=== PATIENT | female | born 1970 | race Caucasian/White ===

== ENCOUNTER 2020-10-30 10:00 | Day surgery (SDC) | payer BC ==
[~2020-10-30] VITALS: Ht 162.6 cm; Wt 58.6 kg
--- NOTE | 2020-10-30 10:49 | NUR ---
dr dacosta in to give family prescription.
--- NOTE | 2020-10-30 14:35 | NUR ---
10/30/20 1435 Brianna Bailey 1431 PATIENT ARRIVES TO PACU UNRESPONSIVE TO PAIN. RN HOLDING JAW THRUST TO MAINTAIN AIRWAY. RESP EVEN AND UNLABORED, MASK AT 6 LITERS.
[2020-10-30] MEDS ORDERED: PERCOCET 5-3251 EACH PO (15:40)
[2020-10-30] MEDS ORDERED: IBUPROFEN800 MG PO (15:40)
[2020-10-30] MEDS ORDERED: IRON325 M1 PO (15:41)
--- NOTE | 2020-10-30 16:48 | NUR ---
READY FOR URINARY CATHETER TO BE DCD.
--- NOTE | 2020-10-30 17:14 | NUR ---
assisted up to br. amb well. voids 100mls bright yellow urine.
--- NOTE | 2020-11-03 09:01 | OR ---
[facility] [address] [place], [place] [address] Signed DATE OF OPERATION: 10/30/2020 SURGEON: Enoch Pandya MD Patient of Dr. Pandya. PREOPERATIVE DIAGNOSES: Submucosal fibroid, abnormal uterine bleeding and acute and chronic blood-loss anemia. POSTOPERATIVE DIAGNOSES: Submucosal fibroid, abnormal uterine bleeding and acute and chronic blood-loss anemia. PROCEDURE: Total laparoscopic hysterectomy with bilateral salpingectomy and cystoscopy. DIRECTOR PART: Dr. Aponte. ANESTHESIA: General. ESTIMATED BLOOD LOSS: 20 mL. COMPLICATIONS: None. DRAINS: Valera to bladder. FINDINGS: Normal-sized cervix. The uterus slightly symmetrically enlarged with 5 cm submucous fibroid within the upper portion of the uterine cavity. The rest of the uterus appeared normal. The anterior cul-de-sac was free of any adhesions. The posterior cul-de-sac was free of any adhesions. The left tube was normal in length and normal-appearing fimbriated end and no adhesions. The left ovary is normal size and shape without any evidence of endometriosis or adhesions. The right tube was normal in length with normal-appearing fimbriated end and no adhesions. Right ovary is normal size and shape without any evidence of endometriosis or adhesions. The rest of pelvis is free of any masses or adhesions. Electronically Signed By: ENOCH PANDYA MD 11/03/20 0901 PATIENT NAME: MILENA MATTA OPERATIVE REPORT DATE OF : 66 REPORT #: [id number] PHYSICIAN: ENOCH PANDYA MD PCP: TRICIA TEE REPORT IS CONFIDENTIAL AND NOT TO BE RELEASED WITHOUT AUTHORIZATION [facility] [address], [place] [address] Signed DESCRIPTION OF PROCEDURE: The patient was brought to the operating room, placed in supine position. After adequate general anesthesia was obtained, she was placed in a dorsal lithotomy position, prepped and draped in usual sterile fashion. Valera catheter was placed in the bladder. A weighted speculum was placed in the vagina and the anterior lip of the cervix was grasped with an Allis clamp. The cervix was serially dilated and then VCare uterine manipulator was gently inserted into the fundus of the uterus and the balloon filled with water. Allis clamp was removed and the cervical cap slid up the manipulator and around the cervix. The vaginal cup was slid up and pressed against the cervical cap and tightened in place to hold the cervical cap around the cervix. A weighted speculum was removed. Attention was then drawn to the abdomen. A small infraumbilical skin incision was made with a scalpel after injecting the area with 0.25% Marcaine with epinephrine. The subcutaneous tissue was dissected with Metzenbaum scissors and the fascia grasped with hemostats, elevated, nicked with Metzenbaum scissors and extended in transverse fashion using Metzenbaum scissors. A finger dissection was then used to open the muscle and the peritoneum. An S retractor was inserted into the incision and then the Britany cannula and sleeve entered the abdomen under direct visualization. The S retractor was removed. The Fernández sleeve balloon filled with air and the upper sleeve slid down and attached against the skin. The retention stitches of 0 Vicryl had been placed above and below the incision through the fascia and these were attached to the upper sleeve for additional support. The trocar was removed and the laparoscope with video attachment entered the abdomen under direct visualization. The above the above findings were noted. On the left side, a small incision was made just below the level of the umbilicus approximately 10 cm lateral to the midline. The abdominal wall was transilluminated to help avoid any vessels. The area injected with 0.25% Marcaine with epinephrine and a small skin incision was made with a scalpel. A bladed 5-mm trocar and sleeve were then entered the abdomen under direct visualization. The trocar was removed and blunt grasper inserted through the sleeve. The balloon was filled with air to hold the sleeve in place. On the right side again a small skin incision was made after transilluminating the abdominal wall to avoid any vessels. This was again just below the level of the umbilicus approximately 10 cm lateral to the midline. On this side, Veress needle with expandable sleeve entered the abdomen under direct visualization. The Veress needle was removed and expandable port with a 10 to 12 mm sleeve was placed through the expandable port under direct visualization. The trocar was removed and blunt graspers inserted through this side. The LigaSure bipolar forceps were then used for dissection. Two fallopian tubes were removed by cauterizing along the mesosalpinx down the proximal portion of the tube and then cauterizing and cutting across the tube. Each tube was then delivered through the larger right sleeve. Both utero-ovarian ligaments were cauterized in several Electronically Signed By: ENOCH PANDYA MD 11/03/20 0901 PATIENT NAME: MILENA MATTA OPERATIVE REPORT DATE OF : 66 REPORT #: [id number] PHYSICIAN: ENOCH PANDYA MD PCP: TRICIA TEE REPORT IS CONFIDENTIAL AND NOT TO BE RELEASED WITHOUT AUTHORIZATION [facility] [address], [place] [address] [address] and cut using the ligature forceps and then on the right side, the round ligament was cauterized in several places and cut and the upper broad ligament cauterized and cut. The anterior posterior leaves of the broad ligament were then individually cauterized and cut down the side of the broad ligament, staying close to the uterus and wrapping around to the midline at the level of the cervical cap. The exposed uterine vessels were cauterized in several places and cut at the level of the cervical cap which could be palpated through the vaginal wall. In the same fashion, the left side was done cauterizing and cutting the round ligament, the upper broad ligament, then individually cauterizing and cutting the anterior and posterior leaves of the broad ligament connecting to the previous dissection. The anterior peritoneum was then gently pushed up further to help move the bladder further away. The vessels on the left side were cauterized and cut again at the level of the cervical cap and the paracervical tissue cauterized and cut. At this point, just the vaginal wall remained and so the Sonicision used to open the posterior cul-de-sac in the groove of the cervical cap and the Sonicision used to cut the vaginal wall continuing in the groove from posterior to anterior midline on the left side and posterior anterior on the right side the uterus and cervix from the vagina and leaving very little vaginal wall on the cervix. Attention was then drawn back to the vagina. The uterine manipulator was gently removed. The cervix noted to be at the introitus when the manipulator came out of the cervix, so the cervix was grasped with an Allis clamp and the cervix gently removed through the vaginal opening. After the uterus was removed, a Lap sponge filled glove was placed in the vagina, so that the abdomen could be re-insufflated. Attention was then drawn back to the abdomen. The abdomen was re-insufflated, irrigated and suctioned and small amount of bleeding was noted at the right angle of the cuff. Attempt was made right at this angle to control the oozing with bipolar forceps but this did not seem to be working, so very carefully the monopolar paddle was used to touch the vaginal corner. A 5 mm Surgiclip was also used on one area that had a little more oozing than the rest. At this point, there was very minimal bleeding, so the angle was sprayed with Tisseel and then the cuff closed. Endo-stitch instrument with barbed suture was placed through the right lateral port and the vagina closed with the Endo-stitch starting at the right uterosacral ligament in the posterior cuff and after passing needle through the posterior cuff, the suture was passed through the loop in the end of the barbed suture. The suture was then placed through the anterior cuff and closed individually posterior cuff to the anterior cuff across to the left uterosacral ligament. Upon reaching this side, the suture was taken back in superficial bites towards the midline to help lock the suture in place. The remaining suture tag was then cut with laparoscopic scissors. The entire pelvis was irrigated, suctioned and examined and noted to have good hemostasis. The right angle was carefully examined and seemed to have no more bleeding. The remaining Tisseel Electronically Signed By: ENOCH PANDYA MD 11/03/20 0901 PATIENT NAME: MILENA MATTA OPERATIVE REPORT DATE OF : 66 REPORT #: [id number] PHYSICIAN: ENOCH PANDYA MD PCP: TRICIA TEE REPORT IS CONFIDENTIAL AND NOT TO BE RELEASED WITHOUT AUTHORIZATION [address] [address] Signed was used to spray over the entire cuff for further hemostatic support. At this point, all instruments were removed. The gas was allowed to escape and the laparoscope and final sleeve were removed. The infraumbilical incision was closed using running stitch of 0 Vicryl suture. The 3 skin incisions were closed using 4-0 Vicryl subcuticular stitches. The sponge filled glove was easily removed. Valera catheter removed and cystoscopy performed. The 70-degree cystoscope was placed in the urethra and entered the bladder under direct visualization. Sterile water was used as distending medium. The bladder filled well. The dome and the entire bladder showed good filling. No defects and no bruising. No stitches. Both ureteral orifices were identified and both showed a good strong flow of urine. At this point, the cystoscope was removed. The bladder drained and the sleeves removed. The Valera was placed back into the bladder. The patient tolerated the procedure well, went to recovery room in good condition. The sponge, needle, and instrument count were correct at the end of the procedure. MD CHRIS ColonB/ADRIANOL /[id number] cc: ERVIN Leahy Copies: TRICIA TEE ~ Electronically Signed By: ENOCH PANDYA MD 11/03/20 0901 PATIENT NAME: MILENA MATTA OPERATIVE REPORT DATE OF : 66 REPORT #: [id number] PHYSICIAN: ENOCH PANDYA MD PCP: TRICIA TEE REPORT IS CONFIDENTIAL AND NOT TO BE RELEASED WITHOUT AUTHORIZATION
--- NOTE | 2020-11-03 20:33 | PATH ---
[facility] [address] [place], [place] [address] Signed SPECIMEN(S): A CERVIX, UTERUS, AND TUBES SPECIMEN SOURCE: A. CERVIX, UTERUS, AND TUBES CLINICAL HISTORY: Abnormal uterine bleeding; submucosal fibroids FINAL PATHOLOGIC DIAGNOSIS: Uterus, cervix, and bilateral fallopian tubes, hysterectomy and bilateral salpingectomy: - Cervix: No histopathologic abnormality. - Endometrium: Weakly proliferative endometrium. - Myometrium: Adenomyosis, leiomyoma (4 cm in greatest dimension). - Serosa: No histopathologic abnormality. - Fallopian tubes: No histopathologic abnormality. - No evidence of malignancy. NAL:cml:C2NR MICROSCOPIC EXAMINATION: Histologic sections of all submitted blocks are examined by light microscopy. These findings, together with the gross examination, support the pathologic diagnosis. GROSS DESCRIPTION: The specimen, labeled "AM, A," and designated on the requisition "cervix, uterus, bilat fallopian tubes," is received in formalin and consists of a previously incised from anterior to posterior, unoriented, uterus with attached cervix, two detached fimbriated fallopian tube segment, and one detached tubal segment. The orientation of the uterus is grossly indeterminate. The uterus with attached cervix weighs 136 g and measures 8.7 x 6.7 x 4.2 cm upon reconstruction. The uterine serosa is peña, smooth, and glistening. Protruding from the previous incision is a peña-white, previously incised, well-circumscribed, 4.0 cm in greatest dimension, thinly encapsulated rubbery nodule. Due to previous incision, the location of the nodule (submucosal, transmural, subserosal) cannot be determined. The nodule has a whorled, uribe-white cut surface and is without gross evidence of necrosis. The ectocervical tissue is peña-white, smooth to finely wrinkled, and occupies a 2.7 x 2.7 cm PATIENT NAME: MILENA MATTA PATHOLOGY DATE OF : 66 REPORT #: [id number] PHYSICIAN: MARKIE SHORT PCP: TRICIA TEE REPORT IS CONFIDENTIAL AND NOT TO BE RELEASED WITHOUT AUTHORIZATION [facility] [address] [place], [place] [address] Signed area. The external os is oval, patent, and 1.1 cm in diameter. The internal os is patent and the cervical stroma is grossly unremarkable. The triangular endometrial cavity is distorted and measures 4.5 x 1.0 cm. The peña to dark red endometrium is up to 0.1 cm thick without a discrete mass/lesion. The peña, rubbery myometrium is up to 2.1 cm thick and is without an additional discrete mass/lesion. The three tubal segments are peña a peña-purple, grossly unremarkable, and have a patent lumen. The first fimbriated fallopian tube segment is inked blue, 1.2 cm long, and 0.8 cm in diameter. The additional tubal segment is inked green, 3.2 cm and is 0.8 cm in diameter. The second fimbriated fallopian tube segment is 4.7 cm long and 0.8 cm in diameter. [employer] sections are submitted as follows: A1-A2 cervix A3-A4 uterine wall A5 nodule A6-A7 tubes, including fallopian tube fimbria entirely AI (under the direct supervision of a pathologist) The Gross Description was prepared using a voice recognition system. The report was reviewed for accuracy; however, sound-alike word errors, addition and/or deletions may occur. If there is any question about this report, please contact Client Services. PERFORMING LABORATORY: The technical component was performed by [facility], [address] [place] [id number] (Electrophysiology Nurse Practitioner: Hien Carr MD; CLIA# [id number]). [facility] [address] [place] [address] (CLIA# [id number]). Diagnostician: Jaz Saleh MD Pathologist Electronically Signed 11/03/2020 Copies: ~ PATIENT NAME: MILENA MATTA PATHOLOGY DATE OF : 66 REPORT #: [id number] PHYSICIAN: MARKIE SHORT PCP: TRICIA TEE REPORT IS CONFIDENTIAL AND NOT TO BE RELEASED WITHOUT AUTHORIZATION
== END 2020-10-30 17:35 | disposition home or self-care (01) ==
LOC: DS 10:00
PROVIDERS: ATTEND General Practice
PROC: 0UT94ZZ Resection of Uterus, Percutaneous Endoscopic Approach (ICD-10-PCS; principal; 2020-10-30 12:30)
PROC: 0UT74ZZ Resection of Bilateral Fallopian Tubes, Percutaneous Endoscopic Approach (ICD-10-PCS; 2020-10-30 12:30)
DX: D25.0 Submucous leiomyoma of uterus (principal); N93.9 Abnormal uterine and vaginal bleeding, unspecified; N80.0 Endometriosis of uterus; D62 Acute posthemorrhagic anemia; Z87.891 Personal history of nicotine dependence
CPT/HCPCS: 00840; 36415; 86850; 86900; 86901; J0131; J0330; J0690; J1100; J1644; J1885; J2405; J2704; J3010; J3475; J7121